=== PATIENT | female | born 1980 | race Two or more races ===

== ENCOUNTER → 2016-10-24 | Outpatient (CLI) | payer OTHER ==
[~2016-10-24] MED LIST: FERR1TAB36 PO; FOLI400T PO; MULTTAB67 PO; TRAM50 PO; VITA100C2 PO; VITA20003 PO; VITA500T PO
[2016-10-24 11:09] LABS: AUTOMATED NEUTROPHIL # 3.2 TH/MM3 (1.8-7.7); BASOPHIL % 0.4 % (0.0-2.0); EOSINOPHIL % 0.3 % (0.0-4.0); HEMATOCRIT 38.8 % (35.0-46.0); HEMO FLAGS DIFF FINAL; LYMPH % 29.2 % (9.0-44.0); LYMPHOCYTE # 1.5 TH/MM3 (1.0-4.8); MEAN CELL VOLUME 94.7 FL (80.0-100.0); MEAN CORPUSCULAR HEMOGLOBIN 31.9 PG (27.0-34.0); MEAN CORPUSCULAR HGB CONC 33.7 % (32.0-36.0); MONO % 7.7 % (0.0-8.0); NEUT % 62.4 % (16.0-70.0); PLATELET COUNT 312 TH/MM3 (150-450); RED BLOOD COUNT 4.09 MIL/MM3 (4.00-5.30); RED CELL DISTRIBUTION WIDTH 12.7 % (11.6-17.2); WHITE BLOOD COUNT 5.2 TH/MM3 (4.0-11.0)
[2016-10-24 11:11] LABS: BLOOD, URINE MOD (NEG); GLUCOSE,URINE NEG (NEG); KETONE, URINE NEG (NEG); MUCUS URINE FEW /lpf (OCC); NITRITE,URINE NEG (NEG); SQUAMOUS EPITHELIAL CELL URINE 1 /hpf (0-5); URINE COLOR YELLOW (YELLW/STRAW)
[2016-10-24 11:41] LABS: ANION GAP 9 MEQ/L (5-15); BICARBONATE 25.2 MEQ/L (21.0-32.0); BLOOD UREA NITROGEN 8 MG/DL (7-18); CHLORIDE 104 MEQ/L (98-107); GLOMERULAR FILTRATION RATE 116 ML/MIN (>89); GLUCOSE,FASTING 95 MG/DL (74-99); POTASSIUM 4.1 MEQ/L (3.5-5.1); SODIUM (NA) 138 MEQ/L (136-145)
[2016-10-24 11:42] LABS: BHCG SCREEN QUALITATIVE LESS THAN 1 MIU/ML (0-5)
== END ==
LOC: CPRE 10:27
PROVIDERS: ATTEND Obstetrics & Gynecology
DX: Z01.812 Encounter for preprocedural laboratory examination (principal); D25.9 Leiomyoma of uterus, unspecified
CPT/HCPCS: 36415; 80048; 81001; 84703; 85025; 86850; 86900; 86901

== ENCOUNTER → 2016-10-26 | Day surgery (SDC) | payer OTHER ==
[~2016-10-26] VITALS: Ht 167.6 cm; Wt 67.4 kg
[~2016-10-26] MED LIST changes: +*MEPERIDINE 25 MG INJ VIAL PERIprocedural Use ONLY ONE; +ACETAMINOPHEN 1000 MG/100 ML VIAL IV ONE; +APREPITANT 40 MG CAP ONE; +APREPITANT 40 MG CAP PO SCH; +DO NOT ADM ANY ANTICOAGULANT DRUGS XX PRN; +IBUPROFEN 600 MG TAB PO PRN; +INSULIN HUMAN REGULAR 1,000 UNITS/10 ML VIAL SQ PRN; +KETOROLAC TROMETHAMINE 30 MG/ML (IVP) VIAL IVP PRN; +LACTATED RINGER'S 1000 ML INJ 1,000 ML IV SCH; +LACTATED RINGER'S 1000 ML IV SCH; +METOPROLOL TARTRATE 25 MG TAB PO PRN; +MIDAZOLAM HCL 2 MG/2 ML VIAL ONE; +ONDANSETRON HCL 4 MG/2 ML VIAL IV PUSH ONE; +ONDANSETRON HCL 4 MG/2 ML VIAL IVP PRN; +PROMETHAZINE INJ 25 MG/ML VIAL IM PRN; +PROPOFOL 200 MG/20 ML AMP IV ONE; +SODIUM CHLORID 0.9% 500 ML IV SCH; +SODIUM CHLORIDE 0.9% FLUSH 5 ML FLUSH FLUSH PRN; +SODIUM CHLORIDE 0.9% FLUSH 5 ML FLUSH FLUSH SCH; -TRAM50 PO; +ceFAZolin 2 GM PREMIX 50 ML IV SCH; +diphenhydrAMINE HCL 25 MG CAP PO PRN; +fentaNYL CITRATE 250 MCG/5 ML AMP ONE; +oxyCODONE/ACETAMINOPHEN 5 MG/325 MG TAB PO PRN
[2016-10-26 08:45] VITALS: BP 105/59; PULSE 64; RESP 20; TEMP 98.9; O2SAT 98
[2016-10-26 12:20] VITALS: BP 105/53; PULSE 82; RESP 20; TEMP 97.6; O2SAT 98
--- NOTE | 2016-10-27 06:24 | MP ---
cc: FABI MARTINEZ M.D. DATE OF SURGERY 10/26/2016 PREOPERATIVE DIAGNOSIS Patient with a history of small uterine fibroids, infertility. PROCEDURE Exam under anesthesia. Diagnostic hysteroscopy. Endometrial sampling. POSTOPERATIVE DIAGNOSES 1. Patient with a history of small uterine fibroids, infertility. 2. Normal endometrial cavity. ESTIMATED BLOOD LOSS Minimal. DRAINS None. INDICATION FOR PROCEDURE The patient has been evaluated for infertility treatment and IVF by Dr. Jad Ramos in [place]. Ultrasound revealed a 1.6 cm intramural myoma. The patient was recommended to have myomectomy continent on myoma impacting endometrial cavity. MRI was obtained prior to surgical evaluation which revealed two small myomas, neither of which were in close proximity or deflecting the endometrial cavity. The patient was counseled to her options and elected for diagnostic hysteroscopy and possible hysteroscopic myomectomy pending operative findings. PROCEDURE The patient received Ancef 2 grams prophylactically. She underwent general anesthesia with LMA placement. She was carefully positioned in dorsal lithotomy position with appropriate padding. She had sequentials placed on the lower extremities for VTE prophylaxis. She was prepped and draped, a time-out was conducted, agreed by all present in the room. Simple exam revealed a slightly retroverted uterus. The cervix was small, midline, intact. No focal abnormality. A single-tooth tenaculum is used to secure the cervix anteriorly. The uterine sound was placed gently to about 7 cm. The cervix was then dilated to accommodate a 0-degree 5-mm rigid hysteroscope with normal saline attached to a gravity feed instillation bag. The examination of the cavity revealed a symmetrical uterine cavity. Both tubal ostia appeared normal. There was no focal abnormality, no perforation, no mass present within the endometrial cavity. There was complete normal contour of the cavity but no evidence of an impinging myoma. After completion of the hysteroscopic portion a small curette was used to examine the cavity and again no irregularity or deformity was evident. Endometrial tissue sent in formalin as a endometrial biopsy. At the completion of the case final counts were correct. The patient was stable. Instillation fluid was accounted for. The patient was taken to the recovery room on room air. MD LORENA Guan/LAURA /11:04 AM /6:14 AM
== END | disposition home or self-care (01) ==
LOC: HSDC 08:00
PROVIDERS: ATTEND Obstetrics & Gynecology
DX: D25.9 Leiomyoma of uterus, unspecified (principal); N94.6 Dysmenorrhea, unspecified; N97.9 Female infertility, unspecified
CPT/HCPCS: 00952; 58558; 88305; J0131; J0690; J1885; J2175; J2250; J2405; J3010; J7120; J8501

== ENCOUNTER → 2017-05-30 | Day surgery (SDC) | payer OTHER ==
[~2017-05-30] VITALS: Ht 167.6 cm; Wt 64.3 kg
[~2017-05-30] MED LIST changes: -*MEPERIDINE 25 MG INJ VIAL PERIprocedural Use ONLY ONE; +ACETAMINOPHEN 1000 MG/100 ML 100 ML IV ONE; -ACETAMINOPHEN 1000 MG/100 ML VIAL IV ONE; -APREPITANT 40 MG CAP ONE; -APREPITANT 40 MG CAP PO SCH; +BUPIVACAINE/EPINEPHRINE 0.25% 50 ML VIAL ONE; +CHLORHEXIDINE GLUCONATE 2 % 1 PACK (2 CLOTHS) TOPICAL PRN; +DEXAMETHASONE SOD PHOS 4 MG/ML VIAL IV ONE; +DEXAMETHASONE SOD PHOS 4 MG/ML VIAL ONE; +DO NOT ADM ANY ANTICOAGULANT DRUGS PRN; -DO NOT ADM ANY ANTICOAGULANT DRUGS XX PRN; +ESTROGENS CONJUGATED VAG CREA 15 APPL/30 GM TUBE ONE; +FAMOTIDINE 20 MG/2 ML VIAL ONE; -FERR1TAB36 PO; +FERR325T8 PO; +GLYCOPYRROLATE 1 MG/5 ML SYRINGE IV PUSH ONE; -IBUPROFEN 600 MG TAB PO PRN; -KETOROLAC TROMETHAMINE 30 MG/ML (IVP) VIAL IVP PRN; +KETOROLAC TROMETHAMINE 60 MG/2 ML (IM) VIAL IM ONE; -LACTATED RINGER'S 1000 ML INJ 1,000 ML IV SCH; +LACTATED RINGER'S 1000 ML INJ 2,000 ML IV ONE; +LACTATED RINGER'S 1000 ML IV PRN; -LACTATED RINGER'S 1000 ML IV SCH; +LIDOCAINE HCL 1% PF 5 ML AMPULE OTHER ONE; +MORPHINE SULFATE 4 MG/ML INJ ONE; +NEOSTIGMINE 3 MG/3 ML SYR IV ONE; -ONDANSETRON HCL 4 MG/2 ML VIAL IVP PRN; +OXYTOCIN 10 UNIT/ML AMP ONE; +PERC5TAB12 PO; +PHENYLEPH/NS 1000 MCG/10 ML SYR IV ONE; +POVIDONE IODINE 5% (ANTISEPSIS KIT) 4 APPLICATIONS EACH NARE PRN; -PROMETHAZINE INJ 25 MG/ML VIAL IM PRN; +ROCURONIUM INJ 50 MG/5 ML SYRINGE IV PUSH ONE; +SODIUM CHLORID 0.9% 500 ML IV PRN; -SODIUM CHLORID 0.9% 500 ML IV SCH; -SODIUM CHLORIDE 0.9% FLUSH 5 ML FLUSH FLUSH PRN; -SODIUM CHLORIDE 0.9% FLUSH 5 ML FLUSH FLUSH SCH; -VITA100C2 PO; -VITA500T PO; +ceFAZolin 1,000 MG/NS 100 ML IV SCH; -ceFAZolin 2 GM PREMIX 50 ML IV SCH; +ceFAZolin INJ 1,000 MG VIAL IV ONE; -diphenhydrAMINE HCL 25 MG CAP PO PRN; +ePHEDrine/NS 25 MG/5 ML SYR IV ONE; -fentaNYL CITRATE 250 MCG/5 ML AMP ONE; -oxyCODONE/ACETAMINOPHEN 5 MG/325 MG TAB PO PRN
[2017-05-30 08:52] LABS: AUTOMATED NEUTROPHIL # 2.7 TH/MM3 (1.8-7.7); BASOPHIL % 0.6 % (0.0-2.0); EOSINOPHIL % 0.6 % (0.0-4.0); HEMATOCRIT 34.9 % (35.0-46.0); HEMO FLAGS DIFF FINAL; LYMPH % 31.8 % (9.0-44.0); LYMPHOCYTE # 1.4 TH/MM3 (1.0-4.8); MEAN CELL VOLUME 95.5 FL (80.0-100.0); MEAN CORPUSCULAR HEMOGLOBIN 32.2 PG (27.0-34.0); MEAN CORPUSCULAR HGB CONC 33.8 % (32.0-36.0); MONO % 7.1 % (0.0-8.0); NEUT % 59.9 % (16.0-70.0); PLATELET COUNT 295 TH/MM3 (150-450); RED BLOOD COUNT 3.65 MIL/MM3 (4.00-5.30); RED CELL DISTRIBUTION WIDTH 13.1 % (11.6-17.2); WHITE BLOOD COUNT 4.5 TH/MM3 (4.0-11.0)
[2017-05-30 09:16] LABS: BETA HCG QUANT LESS THAN 1 MIU/ML (0-5)
--- NOTE | 2017-05-30 11:54 | PD.OP ---
Operative Report Date of Surgery: May 30, 2017 Preoperative Diagnosis: (1) Endometriosis determined by laparoscopy (2) Fibroids, submucosal (3) Pelvic pain in female Postoperative Diagnosis: (1) Endometriosis determined by laparoscopy (2) Fibroids, submucosal Procedure: D&C HSC and oper LSC with myomectomy Surgeon: Abhishek Smallwood Roll Weigher(s): Abhishek De Los Santos MD May 30, 2017 11:54
--- NOTE | 2017-05-30 11:55 | HHI.DCPOC ---
Discharge Care Plan Diagnosis: (1) Endometriosis determined by laparoscopy Report Symptoms to Your Doctor -Temperature above 100.5 degrees -Redness, of incision or excessive or foul smelling drainage -Unusual pain or calf pain -Increased vaginal bleeding -Painful or difficulty urinating -Feelings of extreme sadness or anxiety after 2 weeks Goals to Promote Your Health * To prevent worsening of your condition and complications * To maintain your health at the optimal level Directions to Meet Your Goals Take your medications as prescribed Follow your dietary instruction Follow activity as directed Ensure plenty of rest for recovery Drink fluids for hydration Keep your appointments as scheduled Take your immunizations and boosters as scheduled If your symptoms worsen call your PCP, if no PCP go to Urgent Care Center or Emergency Room Smoking is Dangerous to Your Health. Avoid second hand smoke Call the 24-hour crisis hotline for domestic abuse at Abhishek Smallwood MD May 30, 2017 11:55
--- NOTE | 2017-05-30 12:52 | MP ---
cc: ALEKSANDAR OHARA M.D. DATE OF PROCEDURE 05/30/2017 PROCEDURE Dilatation and curettage, hysteroscopy, operative laparoscopy with treatment of endometriosis and myomectomy. PREOPERATIVE DIAGNOSES Pelvic pain. Fibroids. POSTOPERATIVE DIAGNOSES Pelvic pain. Fibroids. Endometriosis diagnosed with laparoscopy. PROCEDURE IN DETAIL After informed consent, the patient was taken to the operating room where she was placed under general anesthesia, placed in spine position, legs in Yellofin stirrups. The abdomen, perineum and vagina were prepped, draped in normal sterile fashion after adequate anesthesia was assured. Speculum was placed in the vagina. The cervix was grasped with a single-tooth tenaculum, dilated to accommodate a hysteroscope with passage of the hysteroscope to the fundus. There was no polyp, no other abnormality. There was no impinging fibroid inside the uterus. The fibroid that had been seen by Dr. Linder was not readily apparent and could not be removed from anterior. At this point a uterine manipulator was placed into the uterus. Gloves were changed. A 5-mm infraumbilical incision was then made, carried sharply into the subcutaneous tissue, entered the abdomen under direct visualization. A suprapubic 12-mm trocar and a left lower quadrant 5 mm trocar were placed under direct visualization injecting 0.25% Marcaine with epinephrine. We surveyed the upper and lower abdomen. There was no abnormality except for endometriosis in the anterior and posterior cul-de-sac. The ovaries and fallopian tubes appeared normal and multiple fibroids within the uterus. Using a harmonic scalpel we dissected out the fibroids, the largest being in the patient's right lower portion of the uterus. This was dissected off and went into the myometrium. Good hemostasis was achieved in these areas where the myomectomies had been removed. There was one posterior center down in the lower-third of the uterus and there but no injury to the fallopian tubes or blood vessels occurred. The uterus appeared normal at the end of the procedure. All fibroids were removed that could be visualized. Endometriosis in the right posterior cul-de-sac were ablated with harmonic scalpel, some was excised with peritoneal stripping. The patient tolerated the procedure well. There was no significant adhesions from her endometriosis or other abnormalities. The patient tolerated this well. All instruments were removed from the abdomen. She was hemostatic. The patient will be taken to the recovery room in stable condition. Incisions were all closed with a subcuticular stitch. MD BRAN Hernández/LAURA /11:57 AM /12:40 PM
[2017-05-30 14:25] VITALS: BP 100/58; PULSE 94; RESP 18; TEMP 98; O2SAT 99
== END | disposition home or self-care (01) ==
LOC: HSDC 07:55
PROVIDERS: ATTEND Obstetrics & Gynecology
DX: D25.0 Submucous leiomyoma of uterus (principal); N92.0 Excessive and frequent menstruation with regular cycle; D50.0 Iron deficiency anemia secondary to blood loss (chronic); N71.1 Chronic inflammatory disease of uterus; N80.9 Endometriosis, unspecified; R10.2 Pelvic and perineal pain
CPT/HCPCS: 00952; 58561; 84702; 85025; 88305; J0131; J0690; J1100; J1885; J2250; J2270; J2370; J2405; J2710; J3010; J7120; J2590